=== PATIENT | male | born 1965 | race Caucasian/White ===

== ENCOUNTER → 2022-01-09 | Outpatient (CLI) | payer BC ==
[2022-01-09 08:51] LABS: Basophils # (auto) 0.1 10 ^3/uL (0-0.2); Eosinophils # (auto) 0.2 10 ^3/uL (0-0.8); Eosinophils % (auto) 2.2 % (0.0-7.0); Hematocrit 46.3 % (41.0-53.0); Hemoglobin 15.3 g/dL (13.5-17.5); Lymphocytes # (auto) 1.8 10 ^3/uL (0.4-5.4); Lymphocytes % (auto) 23.3 % (10.0-50.0); Mean Corpuscular Hemoglobin 29.4 pg (28.0-32.0); Mean Corpuscular Volume 89.1 fL (80.0-100.0); Monocytes # (auto) 0.7 10 ^3/uL (0-1.3); Monocytes % (auto) 8.9 % (0.0-12.0); Neutrophils # (auto) 4.9 10 ^3/uL (1.6-8.6); Neutrophils % (auto) 64.6 % (37.0-80.0); Nucleated Red Blood Cells % 0.1 %; Red Cell Distribution Width 13.1 % (11.8-14.3); White Blood Cell 7.6 10^3/uL (4.4-10.8)
[2022-01-09 09:17] LABS: Calcium 9.4 mg/dL (8.5-10.1); Potassium 4.3 mmol/L (3.5-5.1)
[2022-01-09 09:22] LABS: BUN/Creatinine Ratio 17.2; Bilirubin, Total 0.5 mg/dL (0.2-1.0); Total Protein 7.7 g/dL (6.4-8.2)
== END | disposition home or self-care (01) ==
LOC: LAB 08:32
PROVIDERS: ATTEND Internal Medicine
DX: Z00.00 Encounter for general adult medical examination without abnormal findings (principal); Z12.11 Encounter for screening for malignant neoplasm of colon; R35.1 Nocturia
CPT/HCPCS: 36415; 80053; 80061; 83036; 84153; 85025

== ENCOUNTER → 2022-01-09 | Outpatient (CLI) | payer BC | END | disposition home or self-care (01) | LOC: XYW 07:37 | PROVIDERS: ATTEND Orthopaedic Surgery Adult Reconstructive Orthopaedic Surgery | DX: Z01.810 Encounter for preprocedural cardiovascular examination (principal) | CPT/HCPCS: 93306 ==

== ENCOUNTER 2022-03-02 08:03 | Inpatient (IN) | payer BC ==
[2022-02-27 12:15] LABS: Basophils # (auto) 0.1 10 ^3/uL (0-0.2); Basophils % (auto) 0.8 % (0.0-2.0); Eosinophils # (auto) 0.1 10 ^3/uL (0-0.8); Eosinophils % (auto) 1.9 % (0.0-7.0); Hematocrit 45.2 % (41.0-53.0); Hemoglobin 15.2 g/dL (13.5-17.5); Lymphocytes # (auto) 1.7 10 ^3/uL (0.4-5.4); Lymphocytes % (auto) 23.2 % (10.0-50.0); Mean Corpuscular Hemoglobin 29.8 pg (28.0-32.0); Mean Corpuscular Hgb Conc. 33.6 g/dL (32.0-36.0); Mean Corpuscular Volume 88.7 fL (80.0-100.0); Monocytes # (auto) 0.8 10 ^3/uL (0-1.3); Monocytes % (auto) 10.5 % (0.0-12.0); Neutrophils # (auto) 4.6 10 ^3/uL (1.6-8.6); Neutrophils % (auto) 63.6 % (37.0-80.0); Nucleated Red Blood Cells % 0.1 %; Red Blood Cells 5.09 10^6/uL (4.5-5.90); Red Cell Distribution Width 13.3 % (11.8-14.3); White Blood Cell 7.2 10^3/uL (4.4-10.8)
[2022-02-27 12:32] LABS: INR 1.03 (0.9-1.15); Partial Thromboplastin Time 30.8 sec (24.6-33.4)
[2022-02-27 12:41] LABS: Urine Bacteria NONE SEEN /hpf (None Seen); Urine Blood Negative /uL (Negative); Urine Specific Gravity 1.009 (1.001-1.035); Urine WBC 1 /hpf (0 - 3)
[2022-02-27 13:08] LABS: Albumin 3.9 g/dL (3.4-5.0); Calcium 8.7 mg/dL (8.5-10.1); Potassium 3.9 mmol/L (3.5-5.1)
[2022-02-27 13:13] LABS: BUN/Creatinine Ratio 15.9; Bilirubin, Total 0.5 mg/dL (0.2-1.0); Total Protein 7.2 g/dL (6.4-8.2)
[~2022-03-02] VITALS: Ht 175.3 cm; Wt 126.1 kg
[2022-03-02] VITALS (11 sets, daily range): BP systolic 118–135; BP diastolic 71–90
[2022-03-02] MEDS ORDERED: ceFAZolin 1GM/50ML 100 ML IV ONE (08:10)
[2022-03-02] MEDS ORDERED: MORPHINE SULF PF 5 MG/10 ML VIAL ONE (08:10)
[2022-03-02] MEDS ORDERED: MIDAZOLAM HCL 2MG/2ML 2ml VIAL (1mg/ml) ONE (08:10)
[2022-03-02] MEDS ORDERED: SODIUM CHLORIDE LOCK 10 ML ONE (08:10)
[2022-03-02] MEDS ORDERED: BUPIVACAINE/DEXTROSE MPF 0.75% 2 ML AMP IT ONE (08:10)
[2022-03-02] MEDS ORDERED: DexAMETHasone SOD PHOS 10MG/1ML VIAL INJ ONE (08:10)
[2022-03-02] MEDS ORDERED: PROPOFOL 10 MG/ML 20 ML IV ONE (08:10)
[2022-03-02] MEDS ORDERED: fentaNYL CITRATE 100 MCG/2 ML VL ONE (08:10)
[2022-03-02] MEDS ORDERED: ONDANSETRON HCL 4 MG/2 ML VIAL ONE (08:10)
[2022-03-02] MEDS ORDERED: EPINEPHrine HCL 1 MG/1 ML AMP ONE ×2 (08:10→09:26)
[2022-03-02] MEDS ORDERED: ACETAMINOPHEN IV 100 ML IV ONE (08:23)
[2022-03-02] MEDS ORDERED: CELECOXIB 100 MG CAP ONE (08:23)
[2022-03-02] MEDS ORDERED: PREGABALIN CAPSULE 75 MG CAP ONE (08:24)
[2022-03-02] MEDS ORDERED: PREGABALIN CAPSULE 75 MG CAP PO ONE (08:30)
[2022-03-02] MEDS ORDERED: CELECOXIB 100 MG CAP PO ONE (08:30)
[2022-03-02] MEDS ORDERED: ACETAMINOPHEN IV 1000 MG/100ML (10MG/ML) IV ONE (08:30)
[2022-03-02] MEDS ORDERED: TRANEXAMIC ACID 20 ML ONE (09:26)
[2022-03-02] MEDS ORDERED: BUPIVACAINE HCL 0.25% P/F 10 ML VIAL ONE (09:26)
[2022-03-02] MEDS ORDERED: VANCOMYCIN HCL 1000 MG VL ONE (09:29)
[2022-03-02] MEDS ORDERED: KETOROLAC TROMETH 30 MG/ML 1ML VIAL ONE ×2 (09:29→13:46)
[2022-03-02] MEDS ORDERED: TETRACAINE 1% INJ 2 ML VIAL IJ ONE (09:32)
[2022-03-02] MEDS ORDERED: MORPHINE SULFATE 4 MG/ML SYR/VIAL IV PRN (10:30)
[2022-03-02] MEDS ORDERED: HYDROmorphone HCL 2 MG/ML VL/or syr IV PRN ×3 (10:30→12:00)
[2022-03-02] MEDS ORDERED: NALOXONE HCL 0.4 MG/ML VIAL IV PRN (10:30)
[2022-03-02] MEDS ORDERED: METOCLOPRAMIDE HCL 5MG/ml INJ 2ml VIAL IV PRN (10:30)
[2022-03-02] MEDS ORDERED: diphenhdrAMINE HCL 50 MG/1 ML VL IV PRN (10:30)
[2022-03-02] MEDS ORDERED: NEOMYCIN-BACITRACIN-POLYM 15GM TOP OINT TOP ONE (11:26)
[2022-03-02] MEDS ORDERED: NITROGLYCERIN 0.4 MG SL TAB SL PRN (12:00)
[2022-03-02] MEDS ORDERED: BISACODYL 5 MG EC TAB PO PRN (12:00)
[2022-03-02] MEDS ORDERED: ACETAMINOPHEN 325 MG TAB PO PRN (12:00)
[2022-03-02] MEDS ORDERED: OXYCODONE W/ ACETAMINOPHEN 5/325MG TABLET PO PRN (12:00)
[2022-03-02] MEDS ORDERED: ONDANSETRON HCL 4 MG/2 ML VIAL IV PRN (12:00)
[2022-03-02] MEDS ORDERED: MORPHINE SULFATE INJ 2 MG/ml SYRG IV PRN (12:00)
[2022-03-02] MEDS: LACTATED RINGER'S 1,000 ML IV SCH (12:09)
[2022-03-02] MEDS: ceFAZolin 1GM/50ML 50 ML IV SCH ×2 (13:48→21:31)
[2022-03-02] MEDS: KETOROLAC TROMETH 30 MG/ML 1ML VIAL IV SCH ×2 (13:49→21:37)
[2022-03-02] MEDS: SODIUM CHLOR 0.9% PF (SALINE LOCK) 10ML VIAL/SYR IV SCH (16:35)
[2022-03-02] MEDS: DOCUSATE SOD 100 MG CAP PO SCH (21:38)
[2022-03-02] MEDS: oxyCODONE ER 10 MG TAB PO SCH (21:39)
[2022-03-03] VITALS (11 sets, daily range): BP systolic 116–145; BP diastolic 65–92
[2022-03-03] MEDS: SODIUM CHLOR 0.9% PF (SALINE LOCK) 10ML VIAL/SYR IV SCH ×4 (00:16→21:29)
[2022-03-03] MEDS: LACTATED RINGER'S 1,000 ML IV SCH ×2 (00:24→08:00)
[2022-03-03] MEDS: ceFAZolin 1GM/50ML 50 ML IV SCH (02:48)
[2022-03-03] MEDS: KETOROLAC TROMETH 30 MG/ML 1ML VIAL IV SCH (05:16)
[2022-03-03 05:44] LABS: Hematocrit 39.8 % (41.0-53.0); Hemoglobin 13.7 g/dL (13.5-17.5)
[2022-03-03 06:06] LABS: Potassium 3.9 mmol/L (3.5-5.1)
[2022-03-03 06:15] LABS: Albumin 3.4 g/dL (3.4-5.0); BUN/Creatinine Ratio 12.4; Bilirubin, Total 0.8 mg/dL (0.2-1.0); Calcium 8.4 mg/dL (8.5-10.1); Total Protein 5.9 g/dL (6.4-8.2)
[2022-03-03] MEDS: DOCUSATE SOD 100 MG CAP PO SCH ×2 (09:38→21:28)
[2022-03-03] MEDS: PANTOPRAZOLE 40 MG TAB PO SCH (09:39)
[2022-03-03] MEDS: ENOXAPARIN SOD 40 MG/0.4 ML SYRINGE SC SCH (09:39)
[2022-03-03] MEDS: oxyCODONE ER 10 MG TAB PO SCH ×2 (09:39→21:28)
[2022-03-03] MEDS: HYDROmorphone HCL 2 MG/ML VL/or syr IV PRN (19:37)
[2022-03-04 05:00] VITALS: BP 151/83
[2022-03-04 06:04] LABS: Hematocrit 36.5 % (41.0-53.0); Hemoglobin 12.5 g/dL (13.5-17.5)
[2022-03-04] MEDS: HYDROmorphone HCL 2 MG/ML VL/or syr IV PRN ×2 (06:07→12:01)
[2022-03-04] MEDS: SODIUM CHLOR 0.9% PF (SALINE LOCK) 10ML VIAL/SYR IV SCH (06:10)
[2022-03-04 09:00] VITALS: BP 157/96
[2022-03-04] MEDS: PANTOPRAZOLE 40 MG TAB PO SCH (10:23)
[2022-03-04] MEDS: DOCUSATE SOD 100 MG CAP PO SCH (10:23)
[2022-03-04] MEDS: oxyCODONE ER 10 MG TAB PO SCH (10:24)
[2022-03-04] MEDS: ENOXAPARIN SOD 40 MG/0.4 ML SYRINGE SC SCH (10:24)
[2022-03-04 15:28] VITALS: BP 149/75
== END 2022-03-04 15:59 | disposition home health service (06) | DRG 470 ==
LOC: SUR 08:03 → TELE 11:51 → TELE-EAST 16:12 → EAST 03-03 23:57
PROVIDERS: ADMIT Orthopaedic Surgery Adult Reconstructive Orthopaedic Surgery; ATTEND Internal Medicine
PROC: 8E0YXBZ Computer Assisted Procedure of Lower Extremity (ICD-10-PCS; 2022-03-02)
PROC: 0SRD0J9 Replacement of Left Knee Joint with Synthetic Substitute, Cemented, Open Approach (ICD-10-PCS; principal; 2022-03-02 09:44)
PROC: 0QPH04Z Removal of Internal Fixation Device from Left Tibia, Open Approach (ICD-10-PCS; 2022-03-02 09:44)
DX: M17.12 Unilateral primary osteoarthritis, left knee (principal); Z68.41 Body mass index [BMI] 40.0-44.9, adult; Z20.822 Contact with and (suspected) exposure to COVID-19; E66.9 Obesity, unspecified
CPT/HCPCS: 36415; 73562; 80053; 81001; 85014; 85018; 85025; 85610; 85730; 86850; 86900; 86901; 97110; 97116; 97163; 97530; G0378; J0131; J0171; J0690; J1100; J1885; J2250; J2405; J2704; J3490

== ENCOUNTER 2023-04-04 12:04 | Inpatient (IN) | payer BC, OTHER ==
[~2023-04-04] VITALS: Ht 175.3 cm; Wt 107.2 kg
[2023-04-04 12:18] VITALS: PULSE 58; RESP 16; O2SAT 95
[2023-04-04 12:29] LABS: Basophils # (auto) 0.1 10 ^3/uL (0-0.2); Basophils % (auto) 0.9 % (0.0-2.0); Eosinophils # (auto) 0.3 10 ^3/uL (0-0.8); Eosinophils % (auto) 3.2 % (0.0-7.0); Hematocrit 44.1 % (41.0-53.0); Lymphocytes # (auto) 2.4 10 ^3/uL (0.4-5.4); Lymphocytes % (auto) 23.8 % (10.0-50.0); Mean Corpuscular Hemoglobin 30.5 pg (28.0-32.0); Mean Corpuscular Hgb Conc. 34.1 g/dL (32.0-36.0); Mean Corpuscular Volume 89.6 fL (80.0-100.0); Monocytes # (auto) 0.8 10 ^3/uL (0-1.3); Monocytes % (auto) 8.1 % (0.0-12.0); Neutrophils # (auto) 6.5 10 ^3/uL (1.6-8.6); Nucleated Red Blood Cells % 0.1 %; Red Blood Cells 4.92 10^6/uL (4.5-5.90); Red Cell Distribution Width 13.6 % (11.8-14.3); White Blood Cell 10.2 10^3/uL (4.4-10.8)
[2023-04-04 12:51] LABS: INR 1.05 (0.9-1.15)
[2023-04-04 12:56] LABS: Alanine Aminotransferase 25 U/L (7-40); Albumin 4.4 g/dL (3.2-4.8); Alkaline Phosphatase 67 U/L (46-116); Anion Gap 7 (5-15); Aspartate Aminotransferase 11 U/L (13-40); BUN/Creatinine Ratio 10.9 (10.0-20.0); Blood Urea Nitrogen 11 mg/dL (9-23); Carbon Dioxide 23 mmol/L (20-30); Chloride 106 mmol/L (98-107); Glucose 139 mg/dL (74-106); Lipase 56 U/L (12-53); Magnesium 2.2 mg/dL (1.6-2.6); Potassium 3.8 mmol/L (3.5-5.1); Sodium 136 mmol/L (136-145)
[2023-04-04 12:57] LABS: Bilirubin, Total 0.7 mg/dL (0.2-1.0); Total Protein 6.9 g/dL (5.7-8.2)
[2023-04-04] MEDS ORDERED: NITROGLYCERIN 0.4 MG SL TAB SL PRN (14:30)
[2023-04-04] MEDS ORDERED: ACETAMINOPHEN 325 MG TAB PO PRN (14:30)
[2023-04-04] MEDS ORDERED: MORPHINE SULFATE INJ 2 MG/ml SYRG IV PRN (14:30)
[2023-04-04] MEDS: SODIUM CHLORIDE 0.9% 1,000 ML IV SCH (14:52)
[2023-04-04 14:53] LABS: Triglycerides 191 mg/dL (< 150)
[2023-04-04 14:54] LABS: LDL Cholesterol 102 mg/dL (< 100)
[2023-04-04 14:55] LABS: Cholesterol 150 mg/dL (< 200); HDL Cholesterol 25 mg/dL (40-59)
[2023-04-04 19:17] VITALS: PULSE 90; RESP 16; O2SAT 95
[2023-04-05] MEDS: SODIUM CHLORIDE 0.9% 1,000 ML IV SCH ×2 (00:30→10:30)
[2023-04-05 01:00] VITALS: TEMP 97.9
[2023-04-05 04:51] LABS: Basophils # (auto) 0 10 ^3/uL (0-0.2); Eosinophils # (auto) 0 10 ^3/uL (0-0.8); Hematocrit 42.4 % (41.0-53.0); Hemoglobin 14.5 g/dL (13.5-17.5); Lymphocytes # (auto) 0.8 10 ^3/uL (0.4-5.4); Lymphocytes % (auto) 4.8 % (10.0-50.0); Mean Corpuscular Hemoglobin 30.5 pg (28.0-32.0); Mean Corpuscular Hgb Conc. 34.3 g/dL (32.0-36.0); Monocytes # (auto) 0.5 10 ^3/uL (0-1.3); Neutrophils # (auto) 16.1 10 ^3/uL (1.6-8.6); Neutrophils % (auto) 92.2 % (37.0-80.0); Red Blood Cells 4.76 10^6/uL (4.5-5.90); Red Cell Distribution Width 13.7 % (11.8-14.3); White Blood Cell 17.5 10^3/uL (4.4-10.8)
[2023-04-05 05:19] LABS: Alanine Aminotransferase 22 U/L (7-40); Albumin 4.2 g/dL (3.2-4.8); Alkaline Phosphatase 62 U/L (46-116); Anion Gap 10 (5-15); Aspartate Aminotransferase < 8 U/L (13-40); BUN/Creatinine Ratio 18.4 (10.0-20.0); Blood Urea Nitrogen 16 mg/dL (9-23); Calcium 9.3 mg/dL (8.7-10.4); Carbon Dioxide 20 mmol/L (20-30); Chloride 108 mmol/L (98-107); Glucose 145 mg/dL (74-106); Potassium 4.2 mmol/L (3.5-5.1); Sodium 138 mmol/L (136-145)
[2023-04-05 05:20] LABS: Bilirubin, Total 0.5 mg/dL (0.2-1.0); Total Protein 6.6 g/dL (5.7-8.2)
[2023-04-05 08:12] VITALS: PULSE 79; RESP 16; O2SAT 95
[2023-04-05] MEDS ORDERED: ENOXAPARIN SOD 40 MG/0.4 ML SYRINGE SC SCH (10:00)
[2023-04-05 10:36] VITALS: O2SAT 97
[2023-04-05 10:42] LABS: Urine Bacteria NONE SEEN /hpf (None Seen); Urine Blood Negative /uL (Negative); Urine Clarity Clear (Clear); Urine Color Straw (Yellow); Urine Mucus FEW (None Seen); Urine Protein, UAD Negative (Negative); Urine Specific Gravity 1.015 (1.001-1.035); Urine Urobilinogen Normal (Negative); Urine WBC 1 /hpf (0 - 3)
[2023-04-05 10:50] LABS: Amphetamine Screen, Urine Neg (NEGATIVE); Barbiturate Scree,Urine Neg (NEGATIVE); Benzodiazephine Screen, Urine Neg (NEGATIVE); Cannabinoid Screen, Urine Neg (NEGATIVE); Cocaine Screen, Urine Neg (NEGATIVE); Opiate Scree,Urine Neg (NEGATIVE); Phencyclidine Screen, Urine Neg (NEGATIVE)
[2023-04-05 11:29] LABS: Folate (Folic Acid) 10.49 ng/mL (>5.38)
[2023-04-05 14:46] VITALS: BP 131/74; PULSE 80; RESP 18
== END 2023-04-05 15:51 | disposition home or self-care (01) | DRG 312 ==
LOC: ER 12:04 → TELE 14:18
PROVIDERS: ADMIT Internal Medicine; ATTEND Student in an Organized Health Care Education/Training Program
DX: R55 Syncope and collapse (principal); J96.01 Acute respiratory failure with hypoxia; E66.01 Morbid (severe) obesity due to excess calories; Z71.3 Dietary counseling and surveillance; Z96.652 Presence of left artificial knee joint; M25.562 Pain in left knee; R00.1 Bradycardia, unspecified; R73.9 Hyperglycemia, unspecified; D72.829 Elevated white blood cell count, unspecified; E78.5 Hyperlipidemia, unspecified; Z68.34 Body mass index [BMI] 34.0-34.9, adult
CPT/HCPCS: 36415; 70450; 71045; 80053; 80061; 80307; 81001; 82306; 82607; 82746; 83036; 83690; 83735; 84443; 84484; 85025; 85610; 93005; 93306; 93886; G0378

== ENCOUNTER 2023-04-05 21:39 | Inpatient (IN) | payer BC ==
[~2023-04-05] VITALS: Ht 175.3 cm; Wt 109.7 kg
[2023-04-05 22:08] VITALS: PULSE 93; RESP 18; O2SAT 97
[2023-04-05] MEDS ORDERED: SODIUM CHLORIDE 0.9% 1,000 ML IV ONE ×3 (22:15→22:30)
[2023-04-05] MEDS ORDERED: MORPHINE SULFATE 4 MG/ML SYR/VIAL IV ONE (22:15)
[2023-04-05] MEDS ORDERED: PROMETHAZINE HCL 25 MG/ML 1ML IV ONE (22:15)
[2023-04-05 23:25] LABS: Basophils # (auto) 0 10 ^3/uL (0-0.2); Basophils % (auto) 0.1 % (0.0-2.0); Eosinophils # (auto) 0 10 ^3/uL (0-0.8); Eosinophils % (auto) 0.1 % (0.0-7.0); Hematocrit 38.9 % (41.0-53.0); Lymphocytes # (auto) 0.9 10 ^3/uL (0.4-5.4); Lymphocytes % (auto) 5.7 % (10.0-50.0); Mean Corpuscular Hemoglobin 29.8 pg (28.0-32.0); Mean Corpuscular Hgb Conc. 33.3 g/dL (32.0-36.0); Mean Corpuscular Volume 89.5 fL (80.0-100.0); Neutrophils # (auto) 14.5 10 ^3/uL (1.6-8.6); Neutrophils % (auto) 88.1 % (37.0-80.0); Red Blood Cells 4.35 10^6/uL (4.5-5.90); Red Cell Distribution Width 13.7 % (11.8-14.3); White Blood Cell 16.5 10^3/uL (4.4-10.8)
[2023-04-05 23:43] LABS: INR 1.12 (0.9-1.15); Partial Thromboplastin Time 26.6 SEC (24.5-34.5); Prothrombin Time 11.7 sec (9.3-11.8)
[2023-04-05 23:44] LABS: Alanine Aminotransferase 22 U/L (7-40); Albumin 3.7 g/dL (3.2-4.8); Alkaline Phosphatase 55 U/L (46-116); Anion Gap 10 (5-15); Aspartate Aminotransferase < 8 U/L (13-40); BUN/Creatinine Ratio 20.7 (10.0-20.0); Blood Urea Nitrogen 19 mg/dL (9-23); Calcium 8.2 mg/dL (8.7-10.4); Carbon Dioxide 22 mmol/L (20-30); Chloride 108 mmol/L (98-107); Glucose 134 mg/dL (74-106); Potassium 3.7 mmol/L (3.5-5.1); Sodium 140 mmol/L (136-145)
[2023-04-05 23:45] LABS: Bilirubin, Total 0.3 mg/dL (0.2-1.0); Total Protein 5.4 g/dL (5.7-8.2)
[2023-04-06 03:27] LABS: Urine Bacteria NONE SEEN /hpf (None Seen); Urine Blood Negative /uL (Negative); Urine Clarity Clear (Clear); Urine Color Colorless (Yellow); Urine Protein, UAD Negative (Negative); Urine Specific Gravity 1.049 (1.001-1.035); Urine Urobilinogen Normal (Negative); Urine WBC <1 /hpf (0 - 3)
[2023-04-06] MEDS ORDERED: MORPHINE SULFATE INJ 2 MG/ml SYRG IV PRN (06:15)
[2023-04-06] MEDS ORDERED: ONDANSETRON HCL 4 MG/2 ML VIAL IV PRN (06:15)
[2023-04-06 07:35] VITALS: PULSE 77; RESP 15; O2SAT 99
[2023-04-06] MEDS ORDERED: CYCLOBENZAPRINE HCL 10 MG TAB PO PRN (08:15)
[2023-04-06] MEDS ORDERED: KETOROLAC TROMETH 30 MG/ML 1ML VIAL IV PRN (08:15)
[2023-04-06 08:35] LABS: Erythrocyte Sedimentation Rate 7 mm/hr (0-20)
[2023-04-06] MEDS: cefTRIAXone 1GM/50ML D5W 50 ML IV SCH (08:57)
[2023-04-06 21:52] VITALS: BP 101/65; PULSE 75; RESP 18; TEMP 98.3; O2SAT 94
[2023-04-07 07:09] LABS: Anion Gap 6 (5-15); Carbon Dioxide 27 mmol/L (20-30); Chloride 106 mmol/L (98-107); Potassium 3.9 mmol/L (3.5-5.1); Sodium 139 mmol/L (136-145)
[2023-04-07 07:11] LABS: Calcium 8.8 mg/dL (8.7-10.4)
[2023-04-07 07:15] LABS: BUN/Creatinine Ratio 15.2 (10.0-20.0); Blood Urea Nitrogen 14 mg/dL (9-23); Glucose 92 mg/dL (74-106)
[2023-04-07 07:16] LABS: Basophils # (auto) 0.1 10 ^3/uL (0-0.2); Basophils % (auto) 0.8 % (0.0-2.0); Eosinophils # (auto) 0.4 10 ^3/uL (0-0.8); Eosinophils % (auto) 3.7 % (0.0-7.0); Hemoglobin 13.9 g/dL (13.5-17.5); Lymphocytes # (auto) 2.1 10 ^3/uL (0.4-5.4); Lymphocytes % (auto) 21.5 % (10.0-50.0); Mean Corpuscular Hemoglobin 30.6 pg (28.0-32.0); Mean Corpuscular Hgb Conc. 33.8 g/dL (32.0-36.0); Mean Corpuscular Volume 90.6 fL (80.0-100.0); Monocytes # (auto) 0.9 10 ^3/uL (0-1.3); Monocytes % (auto) 8.9 % (0.0-12.0); Neutrophils # (auto) 6.5 10 ^3/uL (1.6-8.6); Neutrophils % (auto) 65.1 % (37.0-80.0); Red Blood Cells 4.53 10^6/uL (4.5-5.90); Red Cell Distribution Width 13.5 % (11.8-14.3); White Blood Cell 9.9 10^3/uL (4.4-10.8)
[2023-04-07 08:00] VITALS: PULSE 56; RESP 20
[2023-04-07] MEDS: cefTRIAXone 1GM/50ML D5W 50 ML IV SCH (08:49)
[2023-04-07 09:00] VITALS: BP 109/62; PULSE 56; RESP 20; TEMP 97.9; O2SAT 96
[2023-04-07 13:00] VITALS: BP 112/64; PULSE 58; RESP 20; TEMP 98.1; O2SAT 95
[2023-04-07 13:23] VITALS: BP 109/62; PULSE 56; RESP 20; TEMP 97.9; O2SAT 96
== END 2023-04-07 14:20 | disposition home or self-care (01) | DRG 565 ==
LOC: EDBD 21:39 → EDUNIT# 21:39 → ER 21:39 → OVERFLOW 04-06 06:14 → WEST WING 04-06 18:03
PROVIDERS: ADMIT Nurse Practitioner; ATTEND Internal Medicine
DX: M25.462 Effusion, left knee (principal); L03.90 Cellulitis, unspecified; R65.10 Systemic inflammatory response syndrome (SIRS) of non-infectious origin without acute organ dysfunction; E66.9 Obesity, unspecified; Z96.652 Presence of left artificial knee joint; Z68.35 Body mass index [BMI] 35.0-35.9, adult
CPT/HCPCS: 36415; 71045; 72131; 73700; 80048; 80053; 81001; 84484; 84550; 85025; 85610; 85652; 85730; 86141; 87081; 97163; G0378; J0696

== ENCOUNTER 2023-04-12 10:38 | Inpatient (IN) | payer BC ==
[~2023-04-12] VITALS: Ht 175.3 cm; Wt 107.1 kg
[2023-04-12] MEDS ORDERED: KETOROLAC TROMETH 30 MG/ML 1ML VIAL IV ONE (10:45)
[2023-04-12] MEDS ORDERED: CYCLOBENZAPRINE HCL 10 MG TAB PO ONE (10:45)
[2023-04-12 11:34] LABS: Basophils # (auto) 0 10 ^3/uL (0-0.2); Basophils % (auto) 0.2 % (0.0-2.0); Eosinophils # (auto) 0.1 10 ^3/uL (0-0.8); Eosinophils % (auto) 0.4 % (0.0-7.0); Hematocrit 46.4 % (41.0-53.0); Hemoglobin 15.8 g/dL (13.5-17.5); Lymphocytes # (auto) 1.1 10 ^3/uL (0.4-5.4); Lymphocytes % (auto) 5.4 % (10.0-50.0); Mean Corpuscular Hemoglobin 30.2 pg (28.0-32.0); Mean Corpuscular Hgb Conc. 34.1 g/dL (32.0-36.0); Mean Corpuscular Volume 88.6 fL (80.0-100.0); Monocytes % (auto) 5.2 % (0.0-12.0); Neutrophils # (auto) 17.2 10 ^3/uL (1.6-8.6); Neutrophils % (auto) 88.8 % (37.0-80.0); Nucleated Red Blood Cells % 0.1 %; Red Blood Cells 5.24 10^6/uL (4.5-5.90); Red Cell Distribution Width 13.6 % (11.8-14.3); White Blood Cell 19.3 10^3/uL (4.4-10.8)
[2023-04-12 11:49] LABS: Alanine Aminotransferase 33 U/L (7-40); Albumin 4.7 g/dL (3.2-4.8); Alkaline Phosphatase 73 U/L (46-116); Anion Gap 11 (5-15); Aspartate Aminotransferase 17 U/L (13-40); BUN/Creatinine Ratio 12.5 (10.0-20.0); Blood Urea Nitrogen 13 mg/dL (9-23); Calcium 9.1 mg/dL (8.7-10.4); Carbon Dioxide 19 mmol/L (20-30); Chloride 105 mmol/L (98-107); Glucose 159 mg/dL (74-106); Magnesium 1.8 mg/dL (1.6-2.6); Potassium 3.7 mmol/L (3.5-5.1); Sodium 135 mmol/L (136-145)
[2023-04-12 11:50] LABS: Bilirubin, Total 0.6 mg/dL (0.2-1.0); Total Protein 7.1 g/dL (5.7-8.2)
[2023-04-12 12:01] LABS: INR 1.06 (0.9-1.15); Prothrombin Time 11.1 sec (9.3-11.8)
[2023-04-12] MEDS ORDERED: VANCOMYCIN 1GM/250ML 250 ML IV ONE (13:00)
[2023-04-12] MEDS ORDERED: SODIUM CHLORIDE 0.9% 3,000 ML IV ONE (13:00)
[2023-04-12] MEDS ORDERED: PIPERACILLIN-TAZO 4.5GM 100 ML IV ONE (13:00)
[2023-04-12 13:41] LABS: Lactic Acid w/Reflex 3.4 mmol/L (0.4-2.0)
[2023-04-12] MEDS ORDERED: CEPH500C PO (15:59)
[2023-04-12] MEDS ORDERED: CYCL-611 PO (15:59)
[2023-04-12] MEDS ORDERED: CEFEPIME 1GM/ 50ML 50 ML IV ONE (16:00)
[2023-04-12] MEDS ORDERED: HYDROcodone-ACET 5/325MG TAB PO PRN (16:00)
[2023-04-12] MEDS ORDERED: VANCOMYCIN PER PHARMACY 0 MG IV SCH (16:00)
[2023-04-12] MEDS ORDERED: hydrALAZINE HCL 20 MG/ML VL IV PRN (16:00)
[2023-04-12] MEDS ORDERED: MORPHINE SULFATE INJ 2 MG/ml SYRG IV PRN (16:00)
[2023-04-12] MEDS ORDERED: ACETAMINOPHEN 325 MG TAB PO PRN (16:00)
[2023-04-12] MEDS ORDERED: CYCLOBENZAPRINE HCL 10 MG TAB PO PRN (16:00)
[2023-04-12] MEDS ORDERED: SODIUM CHLORIDE 0.9% 1,000 ML IV ONE (16:00)
[2023-04-12 19:42] LABS: Free T4 (Free Thyroxine) 1.07 ng/dL (0.89-1.76)
[2023-04-12 20:00] VITALS: PULSE 88; RESP 18; O2SAT 95
[2023-04-12 22:55] VITALS: BP 136/81; PULSE 75; PULSE 85; RESP 16; TEMP 98.3; O2SAT 94
[2023-04-12] MEDS: SODIUM CHLORIDE 0.9% 1,000 ML IV SCH (23:29)
[2023-04-12] MEDS: CEFEPIME 1GM/ 50ML 50 ML IV SCH (23:29)
[2023-04-13] VITALS (7 sets, daily range): BP systolic 120–133; BP diastolic 67–81; PULSE 67–92; RESP 18–20; TEMP 98.1–98.5; O2SAT 95–98
[2023-04-13] MEDS: VANCOMYCIN 1GM/250ML 250 ML IV SCH ×3 (04:46→21:08)
[2023-04-13] MEDS: SODIUM CHLORIDE 0.9% 1,000 ML IV SCH ×2 (05:20→19:04)
[2023-04-13] MEDS: CEFEPIME 1GM/ 50ML 50 ML IV SCH (05:57)
[2023-04-13 06:53] LABS: Alanine Aminotransferase 26 U/L (7-40); Alkaline Phosphatase 61 U/L (46-116); Anion Gap 8 (5-15); Aspartate Aminotransferase 13 U/L (13-40); BUN/Creatinine Ratio 11.5 (10.0-20.0); Blood Urea Nitrogen 11 mg/dL (9-23); Calcium 8.8 mg/dL (8.7-10.4); Carbon Dioxide 23 mmol/L (20-30); Chloride 107 mmol/L (98-107); Glucose 113 mg/dL (74-106); Potassium 3.8 mmol/L (3.5-5.1); Sodium 138 mmol/L (136-145)
[2023-04-13 06:54] LABS: Bilirubin, Total 0.5 mg/dL (0.2-1.0); Total Protein 6.1 g/dL (5.7-8.2)
[2023-04-13] MEDS ORDERED: KETOROLAC TROMETH 30 MG/ML 1ML VIAL IV PRN (07:15)
[2023-04-13 07:17] LABS: Basophils # (auto) 0.1 10 ^3/uL (0-0.2); Basophils % (auto) 0.6 % (0.0-2.0); Eosinophils # (auto) 0.2 10 ^3/uL (0-0.8); Eosinophils % (auto) 1.1 % (0.0-7.0); Hemoglobin 14.4 g/dL (13.5-17.5); Lymphocytes # (auto) 1.5 10 ^3/uL (0.4-5.4); Lymphocytes % (auto) 10.8 % (10.0-50.0); Mean Corpuscular Hemoglobin 30.6 pg (28.0-32.0); Mean Corpuscular Hgb Conc. 34.3 g/dL (32.0-36.0); Mean Corpuscular Volume 89.3 fL (80.0-100.0); Monocytes # (auto) 1.4 10 ^3/uL (0-1.3); Monocytes % (auto) 9.9 % (0.0-12.0); Neutrophils # (auto) 10.8 10 ^3/uL (1.6-8.6); Neutrophils % (auto) 77.6 % (37.0-80.0); Nucleated Red Blood Cells % 0.1 %; Red Cell Distribution Width 13.8 % (11.8-14.3)
[2023-04-13 08:23] LABS: Erythrocyte Sedimentation Rate 12 mm/hr (0-20)
[2023-04-13] MEDS ORDERED: ENOXAPARIN SOD 40 MG/0.4 ML SYRINGE SC SCH (10:00)
[2023-04-13] MEDS: CYCLOBENZAPRINE HCL 10 MG TAB PO SCH ×2 (10:25→21:47)
[2023-04-13] MEDS: HYDROmorphone HCL 2 MG/ML VL/or syr IV PRN ×2 (10:29→15:20)
[2023-04-13] MEDS: CEFEPIME 2GM/50ML NS 50 ML IV SCH (14:00)
[2023-04-13 15:35] LABS: Urine Bacteria FEW /hpf (None Seen); Urine Blood Negative /uL (Negative); Urine Clarity Clear (Clear); Urine Color Yellow (Yellow); Urine Protein, UAD Negative (Negative); Urine Specific Gravity 1.011 (1.001-1.035); Urine Urobilinogen Normal (Negative); Urine WBC 1 /hpf (0 - 3)
[2023-04-13] MEDS ORDERED: TPN PER PHARMACY IV NR ×8 (20:00)
[2023-04-14] VITALS (7 sets, daily range): BP systolic 121–147; BP diastolic 78–94; PULSE 89–97; RESP 18–20; TEMP 97.5–99.8; O2SAT 95–98
[2023-04-14] MEDS: CEFEPIME 2GM/50ML NS 50 ML IV SCH ×4 (00:15→22:52)
[2023-04-14] MEDS: VANCOMYCIN 1GM/250ML 250 ML IV SCH ×3 (05:06→21:26)
[2023-04-14 05:42] LABS: Basophils # (auto) 0.1 10 ^3/uL (0-0.2); Basophils % (auto) 0.7 % (0.0-2.0); Eosinophils # (auto) 0.3 10 ^3/uL (0-0.8); Eosinophils % (auto) 1.6 % (0.0-7.0); Hematocrit 44.3 % (41.0-53.0); Hemoglobin 14.7 g/dL (13.5-17.5); Lymphocytes # (auto) 1.5 10 ^3/uL (0.4-5.4); Lymphocytes % (auto) 9.2 % (10.0-50.0); Mean Corpuscular Hemoglobin 30.2 pg (28.0-32.0); Mean Corpuscular Hgb Conc. 33.2 g/dL (32.0-36.0); Mean Corpuscular Volume 90.9 fL (80.0-100.0); Monocytes # (auto) 1.6 10 ^3/uL (0-1.3); Monocytes % (auto) 9.5 % (0.0-12.0); Neutrophils # (auto) 12.9 10 ^3/uL (1.6-8.6); Red Blood Cells 4.88 10^6/uL (4.5-5.90); White Blood Cell 16.4 10^3/uL (4.4-10.8)
[2023-04-14 05:50] LABS: Chloride 106 mmol/L (98-107); Potassium 3.9 mmol/L (3.5-5.1); Sodium 138 mmol/L (136-145)
[2023-04-14 05:51] LABS: Anion Gap 8 (5-15); Calcium 8.8 mg/dL (8.5-10.1); Carbon Dioxide 24 mmol/L (20-30)
[2023-04-14 05:56] LABS: BUN/Creatinine Ratio 9.3 (10.0-20.0); Blood Urea Nitrogen 10 mg/dL (9-23); Glucose 115 mg/dL (74-106)
[2023-04-14] MEDS: CYCLOBENZAPRINE HCL 10 MG TAB PO SCH ×3 (06:12→22:52)
[2023-04-14] MEDS: SODIUM CHLORIDE 0.9% 1,000 ML IV SCH (08:00)
[2023-04-15] MEDS: VANCOMYCIN 1GM/250ML 250 ML IV SCH ×3 (05:08→21:12)
[2023-04-15 06:09] LABS: Basophils # (auto) 0.3 10 ^3/uL (0-0.2); Basophils % (auto) 1.7 % (0.0-2.0); Eosinophils # (auto) 0.4 10 ^3/uL (0-0.8); Eosinophils % (auto) 2.5 % (0.0-7.0); Hematocrit 43.5 % (41.0-53.0); Hemoglobin 14.7 g/dL (13.5-17.5); Lymphocytes # (auto) 0.9 10 ^3/uL (0.4-5.4); Lymphocytes % (auto) 5.7 % (10.0-50.0); Mean Corpuscular Hemoglobin 30.6 pg (28.0-32.0); Mean Corpuscular Hgb Conc. 33.8 g/dL (32.0-36.0); Mean Corpuscular Volume 90.4 fL (80.0-100.0); Monocytes # (auto) 1.3 10 ^3/uL (0-1.3); Monocytes % (auto) 7.7 % (0.0-12.0); Neutrophils # (auto) 13.6 10 ^3/uL (1.6-8.6); Neutrophils % (auto) 82.4 % (37.0-80.0); Nucleated Red Blood Cells % 0.1 %; Red Blood Cells 4.82 10^6/uL (4.5-5.90); Red Cell Distribution Width 13.5 % (11.8-14.3); White Blood Cell 16.5 10^3/uL (4.4-10.8)
[2023-04-15] MEDS: CYCLOBENZAPRINE HCL 10 MG TAB PO SCH ×3 (06:10→21:11)
[2023-04-15] MEDS: CEFEPIME 2GM/50ML NS 50 ML IV SCH (06:10)
[2023-04-15 08:00] VITALS: PULSE 82; PULSE 85; RESP 18; O2SAT 96
[2023-04-15 08:55] LABS: Hepatitis B Surface Antibody Negative (Negative)
[2023-04-15 09:00] VITALS: BP 121/68; PULSE 85; RESP 18; TEMP 98.6; O2SAT 96
[2023-04-15 09:27] LABS: Hepatitis C Antibody Negative (Negative)
[2023-04-15] MEDS ORDERED: COLCHICINE 0.6 MG CAP PO ONE (11:30)
[2023-04-15 12:35] LABS: Free T3 3.08 pg/mL (2.3-4.2)
[2023-04-15 12:37] VITALS: BP 115/81; PULSE 83; RESP 20; TEMP 98.4; O2SAT 99
[2023-04-15 16:33] VITALS: BP 128/81; PULSE 83; RESP 20; TEMP 98.4; O2SAT 99
[2023-04-15 20:00] VITALS: BP 144/99; PULSE 74; PULSE 95; RESP 20; TEMP 98.7; O2SAT 99
[2023-04-16 05:00] VITALS: BP 116/85; PULSE 85; RESP 20; TEMP 97.7; O2SAT 98
[2023-04-16 05:08] LABS: Creatine Kinase CKMB <1.0 ng/mL (0.0-10.4)
[2023-04-16] MEDS: CYCLOBENZAPRINE HCL 10 MG TAB PO SCH ×2 (05:14→13:20)
[2023-04-16] MEDS: VANCOMYCIN 1GM/250ML 250 ML IV SCH ×2 (05:15→13:20)
[2023-04-16 06:44] LABS: Basophils # (auto) 0.1 10 ^3/uL (0-0.2); Basophils % (auto) 0.7 % (0.0-2.0); Eosinophils # (auto) 0.4 10 ^3/uL (0-0.8); Eosinophils % (auto) 2.9 % (0.0-7.0); Hematocrit 41.9 % (41.0-53.0); Hemoglobin 14.4 g/dL (13.5-17.5); Lymphocytes % (auto) 7.1 % (10.0-50.0); Mean Corpuscular Hemoglobin 30.5 pg (28.0-32.0); Mean Corpuscular Hgb Conc. 34.3 g/dL (32.0-36.0); Mean Corpuscular Volume 88.8 fL (80.0-100.0); Monocytes % (auto) 7.1 % (0.0-12.0); Neutrophils # (auto) 11.6 10 ^3/uL (1.6-8.6); Neutrophils % (auto) 82.2 % (37.0-80.0); Red Blood Cells 4.72 10^6/uL (4.5-5.90); Red Cell Distribution Width 13.6 % (11.8-14.3); White Blood Cell 14.1 10^3/uL (4.4-10.8)
[2023-04-16 08:00] VITALS: BP 133/92; PULSE 85; RESP 18; TEMP 98; O2SAT 94
[2023-04-16] MEDS ORDERED: cefTRIAXone 1GM/50ML D5W 50 ML IV SCH (09:00)
[2023-04-16] MEDS ORDERED: COLCHICINE 0.6 MG CAP PO SCH (10:00)
[2023-04-16] MEDS ORDERED: FLORASTOR (S. BOULARDII) 250 MG CAP PO SCH (10:00)
[2023-04-16 12:00] VITALS: BP 119/73; PULSE 73; RESP 16; TEMP 98.4; O2SAT 97
[2023-04-16] MEDS ORDERED: CYCL-611 PO (15:24)
[2023-04-16] MEDS ORDERED: NAPR-746 PO (15:28)
[2023-04-16 16:00] VITALS: BP 122/90; PULSE 89; RESP 16; TEMP 97.9; O2SAT 100
[2023-04-16 16:27] VITALS: BP 122/90; PULSE 89; RESP 16; TEMP 97.9; O2SAT 100
== END 2023-04-16 17:10 | disposition home or self-care (01) | DRG 872 ==
LOC: EDBD 10:38 → ER 10:38 → TELE 15:58 → TELE-WESTW 22:39 → WEST WING 04-15 21:00
PROVIDERS: ADMIT Nurse Practitioner Family; ATTEND Internal Medicine
PROC: 0S9D3ZZ Drainage of Left Knee Joint, Percutaneous Approach (ICD-10-PCS; principal; 2023-04-13)
DX: A41.9 Sepsis, unspecified organism (principal); M00.9 Pyogenic arthritis, unspecified; E66.01 Morbid (severe) obesity due to excess calories; I10 Essential (primary) hypertension; R94.6 Abnormal results of thyroid function studies; D72.829 Elevated white blood cell count, unspecified; Z96.652 Presence of left artificial knee joint; Z68.34 Body mass index [BMI] 34.0-34.9, adult; Z83.3 Family history of diabetes mellitus; Z82.49 Family history of ischemic heart disease and other diseases of the circulatory system; Z71.3 Dietary counseling and surveillance
CPT/HCPCS: 36415; 73700; 75989; 80048; 80053; 80202; 81001; 82085; 82553; 83605; 83615; 83735; 84439; 84443; 84481; 85025; 85610; 85652; 86141; 86706; 86803; 87040; 87081; 87205; 93926; 93971; 96365; 96375; 97110; 97116; 97163; 99291; G0378; J0692; J0696; J1885; J2543

== ENCOUNTER → 2023-04-20 | Outpatient (CLI) | payer BC ==
[~2023-04-20] MED LIST: CEPH500C PO; CYCL-611 PO; NAPR-746 PO
[2023-04-20 11:04] LABS: Basophils # (auto) 0.1 10 ^3/uL (0-0.2); Basophils % (auto) 0.7 % (0.0-2.0); Eosinophils # (auto) 0.2 10 ^3/uL (0-0.8); Eosinophils % (auto) 1.1 % (0.0-7.0); Hematocrit 43.6 % (41.0-53.0); Hemoglobin 15.1 g/dL (13.5-17.5); Lymphocytes # (auto) 0.9 10 ^3/uL (0.4-5.4); Mean Corpuscular Hemoglobin 30.5 pg (28.0-32.0); Mean Corpuscular Hgb Conc. 34.7 g/dL (32.0-36.0); Mean Corpuscular Volume 87.8 fL (80.0-100.0); Monocytes # (auto) 1.4 10 ^3/uL (0-1.3); Monocytes % (auto) 9.6 % (0.0-12.0); Neutrophils # (auto) 11.8 10 ^3/uL (1.6-8.6); Neutrophils % (auto) 82.6 % (37.0-80.0); Nucleated Red Blood Cells % 0.1 %; Red Blood Cells 4.96 10^6/uL (4.5-5.90); White Blood Cell 14.2 10^3/uL (4.4-10.8)
== END | disposition home or self-care (01) ==
LOC: LAB 10:37
PROVIDERS: ATTEND Internal Medicine
DX: R19.7 Diarrhea, unspecified (principal)
CPT/HCPCS: 36415; 85025; 87493

== ENCOUNTER → 2024-03-15 | Outpatient (CLI) | payer BC ==
[2024-03-15 10:05] LABS: Basophils # (auto) 0.1 10 ^3/uL (0-0.2); Basophils % (auto) 1.1 % (0.0-2.0); Eosinophils # (auto) 0.2 10 ^3/uL (0-0.8); Eosinophils % (auto) 2.8 % (0.0-7.0); Hematocrit 47.6 % (41.0-53.0); Hemoglobin 16.5 g/dL (13.5-17.5); Lymphocytes # (auto) 1.8 10 ^3/uL (0.4-5.4); Lymphocytes % (auto) 21.8 % (10.0-50.0); Mean Corpuscular Hemoglobin 31.1 pg (28.0-32.0); Mean Corpuscular Hgb Conc. 34.8 g/dL (32.0-36.0); Mean Corpuscular Volume 89.5 fL (80.0-100.0); Monocytes # (auto) 0.7 10 ^3/uL (0-1.3); Monocytes % (auto) 8.2 % (0.0-12.0); Neutrophils # (auto) 5.4 10 ^3/uL (1.6-8.6); Neutrophils % (auto) 66.1 % (37.0-80.0); Platelet Count (auto) 249 10^3/uL (140-450); Red Blood Cells 5.32 10^6/uL (4.5-5.90); Red Cell Distribution Width 13.8 % (11.8-14.3); White Blood Cell 8.2 10^3/uL (4.4-10.8)
[2024-03-15 10:31] LABS: % Iron Saturation 34.5 % (20-55)
[2024-03-15 10:50] LABS: Albumin 4.7 g/dL (3.2-4.8); Bilirubin, Direct 0.2 mg/dL (<0.3); Bilirubin, Total 0.6 mg/dL (0.2-1.0); Total Protein 7.2 g/dL (5.7-8.2)
== END | disposition home or self-care (01) ==
LOC: LAB 09:08
PROVIDERS: ATTEND Internal Medicine
DX: R79.89 Other specified abnormal findings of blood chemistry (principal)
CPT/HCPCS: 36415; 80076; 82728; 83540; 83550; 85025

== ENCOUNTER 2024-08-05 07:52 | Day surgery (SDC) | payer BC ==
[2024-08-01 10:36] LABS: Basophils # (auto) 0.1 10 ^3/uL (0-0.2); Eosinophils # (auto) 0.2 10 ^3/uL (0-0.8); Eosinophils % (auto) 2.8 % (0.0-7.0); Hemoglobin 16.3 g/dL (13.5-17.5); Lymphocytes # (auto) 1.7 10 ^3/uL (0.4-5.4); Lymphocytes % (auto) 22.2 % (10.0-50.0); Mean Corpuscular Hemoglobin 30.3 pg (28.0-32.0); Mean Corpuscular Volume 89.1 fL (80.0-100.0); Monocytes # (auto) 0.8 10 ^3/uL (0-1.3); Monocytes % (auto) 10.3 % (0.0-12.0); Neutrophils # (auto) 4.8 10 ^3/uL (1.6-8.6); Neutrophils % (auto) 63.7 % (37.0-80.0); Nucleated Red Blood Cells % 0.1 %; Platelet Count (auto) 257 10^3/uL (140-450); Red Blood Cells 5.38 10^6/uL (4.5-5.90); White Blood Cell 7.5 10^3/uL (4.4-10.8)
[2024-08-01 10:51] LABS: INR 1.02 (0.9-1.15); Partial Thromboplastin Time 29.6 SEC (24.5-34.5); Prothrombin Time 10.8 sec (9.3-11.8)
[2024-08-01 11:34] LABS: Alkaline Phosphatase 60 U/L (46-116); Anion Gap 8 (5-15); BUN/Creatinine Ratio 11.8 (10.0-20.0); Blood Urea Nitrogen 11 mg/dL (9-23); Calcium 10.3 mg/dL (8.7-10.4); Carbon Dioxide 27 mmol/L (20-31); Chloride 104 mmol/L (98-107); Glucose 93 mg/dL (74-106); Potassium 4.3 mmol/L (3.5-5.1); Sodium 139 mmol/L (136-145)
[2024-08-01 11:35] LABS: Aspartate Aminotransferase 37 U/L (13-40)
[2024-08-01 11:36] LABS: Albumin 4.7 g/dL (3.2-4.8); Bilirubin, Total 0.7 mg/dL (0.2-1.0); Total Protein 6.9 g/dL (5.7-8.2)
[2024-08-01 11:44] LABS: Alanine Aminotransferase 88 U/L (7-40)
[~2024-08-05] VITALS: Ht 175.3 cm; Wt 108.9 kg
[2024-08-05] MEDS ORDERED: diphenhdrAMINE HCL 50 MG/1 ML VL ONE (08:45)
[2024-08-05] MEDS: fentaNYL CITRATE 100 MCG/2 ML VL ONE (09:05)
[2024-08-05] MEDS: MIDAZOLAM HCL 2MG/2ML 2ml VIAL (1mg/ml) ONE ×2 (09:05→09:09)
[2024-08-05 09:27] VITALS: TEMP 98.5
--- NOTE | 2024-08-05 09:28 | DVHNC2 ---
Procedure - DATE OF PROCEDURE: August 05, 2024 SURGEON: WILMAR WILKERSON MD REFERRING PROVIDER: Dr. MIKE WILDER PROCEDURE PERFORMED: 1. Colonoscopy with moderate sedation PRE-PROCEDURE DIAGNOSIS: 1. Colorectal cancer screening average risk POSTPROCEDURE DIAGNOSIS: 1. Severe diverticulosis 2. Small internal hemorrhoids INDICATIONS FOR PROCEDURE: The patient is a 58-year-old male presents for a pressure colonoscopy for screening. MEDICATIONS USED: 6 mg Versed IV and 50 mcg of fentanyl IV DETAILS OF THE PROCEDURE: Informed consent was obtained after risks, benefits, and alternatives, were discussed at length with the patient. The patient gave consent to the procedure as well as the medication used for sedation. The patient was placed in the left lateral decubitus position. Digital rectal exam showed internal hemorrhoids. An Olympus variable torsion pediatric colonoscope was inserted into the rectum and advanced to the cecum. The cecum was identified by the ileocecal valve and the appendiceal orifice. The scope was then withdrawn. The prep was good with little amounts of liquid stool. There was severe diverticulosis mostly on the left side of the colon. There were no large polyps, masses, strictures, or arteriovenous malformations. More than 7 minutes withdrawal time was noted. Retroflexion showed internal hemorrhoids. The patient tolerated the procedure well [place] BOWEL PREP SCORE: 7 COLONOSCOPY START TIME: 914 CECUM TIME: 917 COLONOSCOPY END TIME: 924 IMPRESSION: 1. Severe diverticulosis mostly on the left colon RECOMMENDATIONS: 1. Follow up with procedure results 2. Repeat colonoscopy in 7-10 years unless otherwise indicated 3. High-fiber diet 4. FOLLOW UP WITH PRIMARY CARE PHYSICIAN I WOULD LIKE TO THANK DR. MCKEON FOR THIS REFERRAL WILMAR WILKERSON MD Aug 05, 2024 09:28
[2024-08-05 10:00] VITALS: BP 133/80; PULSE 75; RESP 18; O2SAT 95
== END 2024-08-05 10:16 | disposition home or self-care (01) ==
LOC: GI 07:52
PROVIDERS: ATTEND Specialist
DX: Z12.11 Encounter for screening for malignant neoplasm of colon (principal); K57.30 Diverticulosis of large intestine without perforation or abscess without bleeding; K64.8 Other hemorrhoids; Z98.890 Other specified postprocedural states
CPT/HCPCS: 36415; 45378; 80053; 85025; 85610; 85730; J2250; J3010; 99152

== ENCOUNTER → 2024-10-06 | Outpatient (CLI) | payer BC ==
[2024-10-06 10:31] LABS: Alkaline Phosphatase 63 U/L (46-116); Anion Gap 10 (5-15); Blood Urea Nitrogen 17 mg/dL (9-23); Calcium 10.3 mg/dL (8.7-10.4); Carbon Dioxide 27 mmol/L (20-31); Chloride 102 mmol/L (98-107); Glucose 102 mg/dL (74-106); Potassium 4.2 mmol/L (3.5-5.1); Sodium 139 mmol/L (136-145); Total Protein 7.5 g/dL (5.7-8.2); Triglycerides 113 mg/dL (< 150)
[2024-10-06 10:32] LABS: Alanine Aminotransferase 86 U/L (7-40); Albumin 4.9 g/dL (3.2-4.8); Aspartate Aminotransferase 38 U/L (13-40); Bilirubin, Direct 0.3 mg/dL (<0.3); Bilirubin, Total 0.8 mg/dL (0.2-1.0); Cholesterol 179 mg/dL (< 200); HDL Cholesterol 32 mg/dL (40-59); LDL Cholesterol 138 mg/dL (< 100)
[2024-10-06 10:36] LABS: INR 1.04 (0.9-1.15)
== END | disposition home or self-care (01) ==
LOC: LAB 08:54
PROVIDERS: ATTEND Internal Medicine Gastroenterology
DX: E03.9 Hypothyroidism, unspecified (principal); E78.5 Hyperlipidemia, unspecified; K76.0 Fatty (change of) liver, not elsewhere classified; R94.5 Abnormal results of liver function studies
CPT/HCPCS: 36415; 80053; 80061; 80076; 84443; 85610; 86038

== ENCOUNTER 2024-10-10 12:43 | Emergency (ER) | payer BC ==
[~2024-10-10] VITALS: Ht 175.3 cm; Wt 109.0 kg
--- NOTE | 2024-10-10 12:58 | ED.PDOC ---
Musculoskeletal HPI Comments 58-year-old male presents to the emergency department via EMS with a chief complaint of LT knee surgery onset today (10/10/24). Patient states he woke up today, noticed LT knee is locked, swollen, with pain radiating to thigh, rates pain 10/10. Patient had knee surgery by Dr. Jordan about 2 years ago. All VSS in route, was given Ketamine in route with no improvement of symptoms. Denies PMHx as well as injury, fall, trauma, nausea, vomiting, diarrhea, dizziness, chest pain, shortness of breath. No other symptoms or modifying factors present at this time. Time Seen by MD: 12:40 Primary Care Provider: MIKE Reviewed Notes: Medications, Allergies Allergies: Coded Allergies: NO KNOWN ALLERGIES (Unverified , 04/12/23) Home Meds No Active Prescriptions or Reported Meds Information Source: Patient, Emergency Med Personnel Mode of Arrival: EMS Location: Left Extremity Location: Knee Timing: Hours Prehospital treatment: Pain Meds Severity: Moderate Able to Move Extremity: No Bear Weight: No Pain: Moderate Mechanism: Spontaneous Circumstances: Spontaneous Onset of Symptoms: Spontaneous Symptoms: Swelling, Pain DVT Risk Factors: NONE History of: Knee Operation Associated signs and symptoms: Knee pain Past Medical History PAST MEDICAL HISTORY: Denies Surgical History: Hernia Repair Surgical History (Other): LT knee surgery, RT shoulder Family History Family History: Family hx of DM, Family hx of Cancer Social History Smoker: Non-Smoker Alcohol: Occasionally Drugs: Denies Drug Use Lives In: Home Constitutional: denies: chills, diaphoresis, fatigue, fever, malaise, sweats, weakness, others EENTM: denies: blurred vision, double vision, ear bleeding, ear discharge, ear drainage, ear pain, ear ringing, eye pain, eye redness, hearing loss, mouth pain, mouth swelling, nasal discharge, nose bleeding, nose congestion, nose pain, photophobia, tearing, throat pain, throat swelling, voice changes, others Respiratory: denies: cough, hemoptysis, orthopnea, SOB at rest, shortness of breath, SOB with excertion, stridor, wheezing, others Cardiovascular: denies: chest pain, dizzy spells, diaphoresis, Dyspnea on exertion, edema, irregular heart beat, left arm pain, lightheadedness, palpitations, PND, syncope, others Gastrointestinal: denies: abdomen distended, abdominal pain, blood streaked bowels, constipated, diarrhea, dysphagia, difficulty swallowing, hematemesis, melena, nausea, poor appetite, poor fluid intake, rectal bleeding, rectal pain, vomiting, others Genitourinary: denies: burning, dysuria, flank pain, frequency, hematuria, incontinence, penile discharge, penile sore, pain, testicle pain, testicle swelling, urgency, others Neurological: denies: dizziness, fainting, headache, left sided numbness, left sided weakness, numbness, paresthesia, pre-existing deficit, right sided numbness, right sided weakness, seizure, speech problems, tingling, tremors, weakness, others Musculoskeletal: reports: joint swelling, others (LT knee pain, LT knee swelling); denies: back pain, gout, joint pain, muscle pain, muscle stiffness, neck pain Integumetry: denies: bruises, change in color, change in hair/nails, dryness, laceration, lesions, lumps, rash, wounds, others Allergic/Immunocompromised: denies: Difficulty Healing, Frequent Infections, Hives, Itching, others Hematologic/Lymphatic: denies: anemia, blood clots, easy bleeding, easy bruising, swollen glands, others Endocrine: denies: excessive hunger, excessive sweating, excessive thirst, excessive urination, flushing, intolerance to cold, intolerance to heat, unexplained weight gain, unexplained weight loss, others Psychiatric: denies: anxiety, bipolar disorder, depression, hopeless, panic disorder, schizophrenia, sleepless, suicidal, others All Other Systems: Reviewed and Negative Physical Exam General Appearance: Moderate Distress HEENT: Normal ENT Inspection, Pharynx Normal, TMs Normal Neck: Full Range of Motion, Non-Tender, Normal, Normal Inspection Respiratory: Chest Non-Tender, Lungs Clear, No Accessory Muscle Use, No Respiratory Distress, Normal Breath Sounds Cardiovascular: No Edema, No JVD, No Murmur, No Gallop, Normal Peripheral Pulses, Regular Rate/Rhythm Breast Exam: Deferred Gastrointestinal: No Organomegaly, Non Tender, No Pulsatile Mass, Normal Bowel Sounds, Soft Genitalia: Deferred Pelvic: Deferred Rectal: Deferred Extremities: No calf tenderness, Normal capillary refill, No pedal edema, Swelling (Left knee swelling and tenderness with decreased range of motion) Musculoskeletal : Apperance: Normal Neurologic: Alert, front office director II-XII nml as Tested, No Motor Deficits, Normal Affect, Normal Mood, No Sensory Deficits Cerebellar Function: Normal Reflexes: Normal Skin: Dry, Normal Color, Warm Lymphatic: No Adenopathy Was a procedure done? Was a procedure done?: No Differential Diagnosis EXT Differential Diagnosis: Fracture, Sprain X-Ray, Labs, Meds, VS Vital Signs Date Time Temp Pulse Resp B/P (MAP) Pulse Ox O2 Delivery O2 Flow Rate FiO2 10/10/24 13:29 160 22 97 Room Air* 0 21 10/10/24 13:16 160 16 165/101 (122) 98 10/10/24 13:15 160 22 165/101 10/10/24 13:00 97.7 82 24 162/90 (114) 99 97.7 Lab Test 10/10/24 13:12 Range/Units White Blood Count 17.6 H 4.4-10.8 10^3/uL Red Blood Count 5.29 4.5-5.90 10^6/uL Hemoglobin 16.2 13.5-17.5 g/dL Hematocrit 46.6 41.0-53.0 % Mean Corpuscular Volume 88.1 80.0-100.0 fL Mean Corpuscular Hemoglobin 30.6 28.0-32.0 pg Mean Corpuscular Hemoglobin Concent 34.7 32.0-36.0 g/dL Red Cell Distribution Width 13.7 11.8-14.3 % Platelet Count 294 140-450 10^3/uL Mean Platelet Volume 7.8 6.9-10.8 fL Neutrophils (%) (Auto) 85.3 H 37.0-80.0 % Lymphocytes (%) (Auto) 9.6 L 10.0-50.0 % Monocytes (%) (Auto) 4.2 0.0-12.0 % Eosinophils (%) (Auto) 0.6 0.0-7.0 % Basophils (%) (Auto) 0.3 0.0-2.0 % Neutrophils # (Auto) 15.0 H 1.6-8.6 10 ^3/uL Lymphocytes # (Auto) 1.7 0.4-5.4 10 ^3/uL Monocytes # (Auto) 0.7 0-1.3 10 ^3/uL Eosinophils # (Auto) 0.1 0-0.8 10 ^3/uL Basophils # (Auto) 0 0-0.2 10 ^3/uL Nucleated Red Blood Cells 0.1 % Sodium Level 137 136-145 mmol/L Potassium Level 3.6 3.5-5.1 mmol/L Chloride Level 103 98-107 mmol/L Carbon Dioxide Level 20 20-31 mmol/L Anion Gap 14 5-15 Blood Urea Nitrogen 15 9-23 mg/dL Creatinine 1.01 0.700-1.30 mg/dL Glomerular Filtration Rate Calc 87 >90 mL/min BUN/Creatinine Ratio 14.9 10.0-20.0 Serum Glucose 160 H 74-106 mg/dL Calcium Level 9.6 8.7-10.4 mg/dL Current Medications Medications (Trade) Dose Ordered Sig/Lulu Route Start Time Stop Time Status Last Admin Hydromorphone HCl (Dilaudid Injection) 1 mg ONCE ONCE IV 10/10/24 13:00 10/10/24 13:01 DC 10/10/24 13:15 Ondansetron HCl (Zofran) 4 mg ONCE ONCE IV 10/10/24 13:00 10/10/24 13:01 DC 10/10/24 13:14 Oxycodone/ Acetaminophen (Percocet 5/ 325MG Tablet) 2 tab ONCE ONCE PO 10/10/24 13:30 10/10/24 13:31 DC 10/10/24 13:28 The CBC shows an elevated white blood cell count of 17.6 The rest of the CBC and chemistry panel are within normal limits The orthopedic PA came down and evaluated the patient. They did place a block on the patient's left knee and currently we are awaiting further evaluation by the orthopedist or PA. The patient was given Dilaudid 1 mg IV push The patient was given Zofran 4 mg IV push The patient was also given Percocet p.o. At this time, the patient will be dispositioned by Orthopedics We are awaiting their response. The patient will be signed out to Dr. Katz Time of 1ST Reevaluation: 13:10 Reevaluation 1ST: Unchanged Patient Education/Counseling: Diagnosis, Treatment, Prognosis Family Education/Counseling: No Family Present Additional Information The following tests were ordered, and results were reviewed by me: CBC, BMP, CT L KNEE WO CONTRAST Additional Information was gathered from interviewing the following independent historians: EMS I reviewed and agreed with the following test results read by other providers: CT L KNEE WO CONTRAST I discussed treatment and results with medical personnel and: patient Comprehensive systems review obtained and negative except for what is stated in the HPI. Departure 1 Departure Time of Disposition: 17:11 Impression: Primary Impression: Intractable neuropathic pain of left knee Disposition: 30 STILL A PATIENT Condition: Fair e-Prescriptions No Active Prescriptions or Reported Meds Critical Care Note Critical Care Time?: No Stability Stability form required: No Heart Score Heart Score: Heart Score Response (Comments) Value History N/A 0 EKG N/A 0 Age N/A 0 Risk Factors N/A 0 Troponin N/A 0 Total 0 I personally scribed for VERONICA SMITH MD ([email or web address]) on 10/10/24 at 12:58. Electronically submitted by Leanne Armenta ([email or web address]). I personally scribed for VERONICA SMITH MD ([email or web address]) on 10/10/24 at 13:13. Electronically submitted by Leanne Armenta ([email or web address]). I personally scribed for VERONICA SMITH MD ([email or web address]) on 10/10/24 at 13:16. Electronically submitted by Leanne Armenta ([email or web address]). VERONICA SMITH MD Oct 10, 2024 12:58
[2024-10-10] MEDS: ONDANSETRON HCL 4 MG/2 ML VIAL IV ONE (13:14)
[2024-10-10] MEDS: HYDROmorphone HCL 2 MG/ML VL/or syr IV ONE (13:15)
[2024-10-10] MEDS: OXYCODONE W/ ACETAMINOPHEN 5/325MG TABLET PO ONE (13:28)
[2024-10-10 13:29] VITALS: PULSE 160; RESP 22; O2SAT 97
[2024-10-10 13:42] LABS: Basophils # (auto) 0 10 ^3/uL (0-0.2); Basophils % (auto) 0.3 % (0.0-2.0); Eosinophils # (auto) 0.1 10 ^3/uL (0-0.8); Eosinophils % (auto) 0.6 % (0.0-7.0); Hematocrit 46.6 % (41.0-53.0); Hemoglobin 16.2 g/dL (13.5-17.5); Lymphocytes # (auto) 1.7 10 ^3/uL (0.4-5.4); Lymphocytes % (auto) 9.6 % (10.0-50.0); Mean Corpuscular Hemoglobin 30.6 pg (28.0-32.0); Mean Corpuscular Hgb Conc. 34.7 g/dL (32.0-36.0); Mean Corpuscular Volume 88.1 fL (80.0-100.0); Monocytes # (auto) 0.7 10 ^3/uL (0-1.3); Monocytes % (auto) 4.2 % (0.0-12.0); Neutrophils % (auto) 85.3 % (37.0-80.0); Nucleated Red Blood Cells % 0.1 %; Platelet Count (auto) 294 10^3/uL (140-450); Red Blood Cells 5.29 10^6/uL (4.5-5.90); Red Cell Distribution Width 13.7 % (11.8-14.3); White Blood Cell 17.6 10^3/uL (4.4-10.8)
[2024-10-10 13:50] LABS: Chloride 103 mmol/L (98-107); Potassium 3.6 mmol/L (3.5-5.1); Sodium 137 mmol/L (136-145)
[2024-10-10 13:51] LABS: Anion Gap 14 (5-15); Calcium 9.6 mg/dL (8.7-10.4)
[2024-10-10 13:52] LABS: Carbon Dioxide 20 mmol/L (20-31)
[2024-10-10 13:56] LABS: BUN/Creatinine Ratio 14.9 (10.0-20.0); Blood Urea Nitrogen 15 mg/dL (9-23); Glucose 160 mg/dL (74-106)
[2024-10-10 18:05] VITALS: PULSE 102; RESP 19; O2SAT 96
[2024-10-10] MEDS ORDERED: BACL20TA PO (18:46)
[2024-10-10] MEDS ORDERED: OXYC-900 PO (18:46)
--- NOTE | 2024-10-10 19:18 | ED.PDOC ---
Departure 1 Departure Time of Disposition: 19:15 (Patient was evaluated by orthopedics who recommended discharge with analgesia.) Impression: Primary Impression: Intractable neuropathic pain of left knee Disposition: HOME / SELF CARE / HOMELESS Condition: Stable Additional Instructions: You were prescribed pain medication. Please take as directed. For pain you can take the followinam: Ibuprofen 400mg with food Noon: Acetaminophen 1000mg 4pm: Ibuprofen 400mg with food 8pm: Acetaminophen 1000mg You should follow up with orthopedic surgery. If your symptoms worsen or you have any other concerns then please return to the ER> e-Prescriptions Oxycodone HCl (Oxycodone Hydrochloride) 5 Mg Tab 5 MG PO QID PRN for 4 Days, #16 TAB Prov: ROSALBA LEWIS MD 10/10/24 Baclofen (Baclofen) 20 Mg Tab 1 TAB PO QPM for 10 Days, #10 TAB 2 Refills Prov: ROSALBA LEWIS MD 10/10/24 ROSALBA LEWIS MD Oct 10, 2024 19:18
--- NOTE | 2024-10-10 19:26 | DVH ---
CLINICAL INDICATION: knee pain TECHNIQUE: 3 radiographic views of the left knee were obtained. Comparison: L KNEE 3V XRAY on DOS: 03/02/22 FINDINGS/IMPRESSION: Postsurgical changes of left total knee replacement with intact hardware and no periprosthetic fractu res. Dislocations. Questionable lucency within the proximal patellar. Recommend correlation with hi story and point tenderness for possible nondisplaced fracture versus artifact. Large suprapatellar effusion.
[2024-10-10 19:30] VITALS: BP 120/88; PULSE 100; RESP 17; TEMP 98.6; O2SAT 96
--- NOTE | 2024-10-10 19:59 | DVHINCON2 ---
Consult Note Consult Consult Note Reason for Consult: Evaluation and management of left quadriceps spasm and anterior knee pain in a patient with prior total knee arthroplasty. --- History of Present Illness: Patient with history of left total knee arthroplasty (TKA) performed few years ago by Dr. Jordan presents to the ED with acute onset of severe quadriceps spasm and anterior knee pain. The patient reports longstanding intermittent episodes of femoral nerve-related pain and quadriceps spasms postoperatively, typically well controlled with muscle relaxants and gabapentin. However, on the morning of presentation, he developed sudden and severe tightening of the left quadriceps muscle associated with significant anterior knee pain, prompting him to call 911 due to inability to relieve symptoms at home. He denies any new trauma, fall, or twist. No erythema, warmth, or significant swelling was reported by the patient. Pt reports in past had Iovera in Apr 2024 that improved his anterior knee pain and quad spasm and has a followup this Wednesday with [facility] w/ Dr. Jordan Staff for repeat injection as he notes episodes of quad spasms increasing in frequency and intensity. --- Past Medical/Surgical History: Left TKA few years ago Chronic femoral nerve-related pain Intermittent quadriceps muscle spasms Medications: Gabapentin, muscle relaxant --- Physical Exam: Inspection: Left knee without erythema, open wounds, or deformity Palpation: Tenderness over anterior thigh and suprapatellar area; muscle tightness noted in left quadriceps ROM: Active ROM limited due to spasm; passive ROM with guarding and limited to 5-90 degree today due to pain Neurovascular: Intact distally; sensation normal; dorsalis pedis and posterior tibial pulses 2+ Skin: No signs of infection or pressure-related injury --- Imaging: X-ray of left knee reviewed: No acute fracture or hardware loosening. Suprapatellar effusion noted. No radiographic signs suggestive of a septic joint. --- ED Management: Ortho completed AFCN (anterior femoral cutaneous nerve) block performed using diagnostic 2% lidocaine injection without Epi (7 ml) after informed verbal consent.Oxycodone 5 mg PO administered for breakthrough pain. Post-injection: Patient reported marked relief of quadriceps spasm and anterior knee pain. No complications noted. --- Impression: Acute exacerbation of chronic left quadriceps spasm and anterior knee pain in the setting of prior TKA and femoral nerve irritation. No radiographic evidence of prosthetic complication or new structural injury. Low suspicion for septic arthritis at this time. --- Plan: Continue supportive care and pain management , ER will manage discharge pain meds Encourage gentle ROM as tolerated Knee brace fitted Monitor for recurrence or progression of symptoms Follow up with Dr. Jordan on Wednesday as scheduled Return precautions provided, including fever, chills, increased swelling, erythema, or worsening pain All questions answered; patient verbalized understanding and agreement with the plan Plan discussed with: Patient Visit Coding Surgery Date of Service if different f: Oct 10, 2024 Billing Provider: EWA MADSEN Surgery Visit Codes: 58452 - INP CONSULT <80 MIN EWA MADSEN Oct 10, 2024 19:59
== END 2024-10-10 19:54 | disposition home or self-care (01) ==
LOC: ER 12:43 → EDBD 12:43 → ER 19:54
DX: M25.562 Pain in left knee (principal); Z96.652 Presence of left artificial knee joint; Z98.890 Other specified postprocedural states
CPT/HCPCS: 36415; 64450; 73562; 80048; 85025; 96374; 96375; 99284; J1171; J2405